=== PATIENT | male | born 1955 | race Caucasian/White ===

== ENCOUNTER 2020-10-20 06:32 | Emergency (ER) | payer MEDICAID ==
[~2020-10-20] VITALS: Ht 190.5 cm; Wt 100.0 kg
[~2020-10-20 06:32] MED LIST: AMOX-117 PO; CLIN-26 PO; FENT1PAT10 TD; FLO0.4C PO; HYDR-3567 PO; OMEP-84 PO; TRAM50TA2 PO
[2020-10-20 06:48] VITALS: BP 123/74
[2020-10-20] MEDS ORDERED: ibuprofen 200mg tablet PO ONE (06:55)
[2020-10-20] MEDS ORDERED: LIDOcaine 1% W/epiNEPHrine 1:200,000 10ml vial IJ ONE (06:55)
[2020-10-20] MEDS ORDERED: LIDOcaine 1% w/epiNEPHrine 1:200,000 30ml vial IJ ONE (07:00)
[2020-10-20] MEDS ORDERED: SULF1TAB49 PO (07:53)
== END 2020-10-20 08:24 | disposition home or self-care (01) ==
LOC: ER 06:33
DX: L03.012 Cellulitis of left finger (principal); G89.29 Other chronic pain; M54.9 Dorsalgia, unspecified; F12.10 Cannabis abuse, uncomplicated; Z56.0 Unemployment, unspecified; Z79.899 Other long term (current) drug therapy
CPT/HCPCS: 10060; 26010; 99283

== ENCOUNTER 2022-09-14 20:06 | Emergency (ER) | payer OTHER, MEDICARE, MEDICAID ==
[~2022-09-14] VITALS: Ht 190.5 cm; Wt 81.8 kg
[2022-09-14 20:40] VITALS: BP 124/81
[2022-09-14] MEDS ORDERED: bacitracin 15gm ointment TP ONE (21:20)
== END 2022-09-14 21:56 | disposition home or self-care (01) ==
LOC: ER 20:08
DX: S60.552A Superficial foreign body of left hand, initial encounter (principal); S60.551A Superficial foreign body of right hand, initial encounter; L30.9 Dermatitis, unspecified; G89.29 Other chronic pain; M54.9 Dorsalgia, unspecified; Z79.899 Other long term (current) drug therapy; Z79.1 Long term (current) use of non-steroidal anti-inflammatories (NSAID); Z79.2 Long term (current) use of antibiotics; X58.XXXA Exposure to other specified factors, initial encounter; Y93.89 Activity, other specified; Y92.89 Other specified places as the place of occurrence of the external cause; Y99.8 Other external cause status
CPT/HCPCS: 99282

== ENCOUNTER 2022-10-18 13:17 | Emergency (ER) | payer OTHER, MEDICARE, MEDICAID ==
[~2022-10-18] VITALS: Ht 190.5 cm; Wt 72.7 kg
[2022-10-18 13:21] VITALS: BP 126/91
--- NOTE | 2022-10-18 13:37 | NUR ---
Patient was seen and assessed by provider.
== END 2022-10-18 13:38 ==
LOC: ER 13:17
DX: Z00.00 Encounter for general adult medical examination without abnormal findings (principal); G89.29 Other chronic pain; M54.50 Low back pain, unspecified; F12.90 Cannabis use, unspecified, uncomplicated; Z56.0 Unemployment, unspecified
CPT/HCPCS: 99283

== ENCOUNTER 2023-03-30 00:10 | Emergency (ER) | payer OTHER, MEDICARE, MEDICAID ==
[~2023-03-30] VITALS: Ht 188 cm; Wt 81.8 kg
[2023-03-30 00:12] VITALS: BP 116/66
== END 2023-03-30 02:31 | disposition left against medical advice (07) ==
LOC: ER 00:11
DX: M79.602 Pain in left arm (principal); Z53.21 Procedure and treatment not carried out due to patient leaving prior to being seen by health care provider
CPT/HCPCS: 99281

== ENCOUNTER 2023-04-01 23:11 | Emergency (ER) | payer OTHER, MEDICARE, MEDICAID ==
[~2023-04-01] VITALS: Ht 188 cm; Wt 79.5 kg
[2023-04-02] MEDS ORDERED: DOXYCYCLINE 100MG CAPSULE PO STA (01:31)
[2023-04-02] MEDS ORDERED: acetaminophen 325mg tablet PO ONE (01:35)
[2023-04-02 01:52] LABS: BASOPHILS % (AUTO) 0.3 % (0-1); EOSINOPHILS # (AUTO) 0.3 X10'3 (0-0.9); EOSINOPHILS % (AUTO) 3.9 % (0-6); HEMATOCRIT 38.2 % (42.0-52.0); HEMOGLOBIN 13.1 g/dl (14.0-17.9); LYMPHOCYTES # (AUTO) 1.8 X10'3 (1.1-4.8); LYMPHOCYTES % (AUTO) 21.2 % (21-51); MEAN CORPUSCULAR HEMOGLOBIN 30.5 PG (27.0-31.0); MEAN CORPUSCULAR HGB CONC 34.3 g/dL (33.0-36.5); MEAN CORPUSCULAR VOLUME 88.9 FL (78-98); MEAN PLATELET VOLUME 6.9 FL (7.4-10.4); MONOCYTES # (AUTO) 0.9 X10'3 (0-0.9); MONOCYTES % (AUTO) 11.1 % (2-12); NEUTROPHILS # (AUTO) 5.3 X10'3 (1.8-7.7); NEUTROPHILS % (AUTO) 63.5 % (42-75); PLATELET COUNT 327 X10'3 (140-440); WHITE BLOOD COUNT 8.4 X10'3 (4.5-11.0)
[2023-04-02 02:09] LABS: ALBUMIN 3.5 G/DL (3.4-5.0); ANION GAP 7 (8-16); BLOOD UREA NITROGEN 26 MG/DL (7-18); BUN/CREATININE RATIO 24.8 (10.0-20.0); CALCIUM 8.7 MG/DL (8.5-10.1); CHLORIDE 104 MMOL/L (99-107); CREATININE 1.05 MG/DL (0.60-1.10); GLUCOSE 86 MG/DL (70-104); POTASSIUM 3.8 MMOL/L (3.5-5.1); SODIUM 139 MMOL/L (135-145); TOTAL CARBON DIOXIDE 28.3 MMOL/L (24-32); eGFR 70 ML/MIN
[2023-04-02] MEDS ORDERED: ondansetron 4mg rapidly disintigrating tab PO ONE (02:25)
[2023-04-02] MEDS ORDERED: DOXY100C77 PO (03:20)
[2023-04-02 03:48] VITALS: BP 128/77
== END 2023-04-02 03:51 | disposition home or self-care (01) ==
LOC: ER 23:12
DX: L98.9 Disorder of the skin and subcutaneous tissue, unspecified (principal); F12.90 Cannabis use, unspecified, uncomplicated; Z56.0 Unemployment, unspecified
CPT/HCPCS: 36415; 73130; 80048; 85025; 99284

== ENCOUNTER 2023-04-02 13:00 | Emergency (ER) | payer OTHER, MEDICARE, MEDICAID ==
[~2023-04-02] VITALS: Ht 188 cm; Wt 84.1 kg
[~2023-04-02 13:00] MED LIST changes: +DOXY100C77 PO
[2023-04-02 13:11] VITALS: BP 101/61
--- NOTE | 2023-04-02 14:08 | NUR ---
PT LWOBS. PT BROUGHT IN PARAPHERNALIA TO ER, SECURITY ASKED PT TO TAKE PARAPHERNALIA TO CAR OR IT WOULD HAVE TO BE DISPOSED OF. PT NEVER RETURNED TO ROOM.
== END 2023-04-02 14:08 | disposition left against medical advice (07) ==
LOC: ER 13:01
DX: L02.512 Cutaneous abscess of left hand (principal); Z53.21 Procedure and treatment not carried out due to patient leaving prior to being seen by health care provider
CPT/HCPCS: 99281

== ENCOUNTER 2023-07-11 01:56 | Emergency (ER) | payer OTHER, MEDICARE ==
[~2023-07-11] VITALS: Ht 190.5 cm; Wt 81.8 kg
[~2023-07-11 01:56] MED LIST changes: -DOXY100C77 PO
[2023-07-11 02:07] VITALS: BP 132/77; PULSE 89; RESP 16; TEMP 98.1; O2SAT 98
[2023-07-11] MEDS ORDERED: SULF1TAB49 PO (02:13)
[2023-07-11] MEDS ORDERED: CEPH-585 PO (02:13)
== END 2023-07-11 02:37 | disposition home or self-care (01) ==
LOC: ER 01:57
DX: L03.116 Cellulitis of left lower limb (principal)
CPT/HCPCS: 99283

== ENCOUNTER 2024-10-19 23:54 | Emergency (ER) | payer OTHER, MEDICARE ==
[~2024-10-19] VITALS: Ht 190.5 cm; Wt 79.5 kg
[2024-10-19 23:56] VITALS: BP 155/88; PULSE 98; RESP 17; TEMP 98.4; O2SAT 99
== END 2024-10-20 02:37 | disposition left against medical advice (07) ==
LOC: ER 23:55
DX: R10.31 Right lower quadrant pain (principal); Z53.21 Procedure and treatment not carried out due to patient leaving prior to being seen by health care provider

== ENCOUNTER 2024-10-20 04:35 | Emergency (ER) | payer OTHER, MEDICARE, MEDICAID | END 2024-10-20 05:06 | disposition left against medical advice (07) | LOC: ER 04:36 | DX: R10.84 Generalized abdominal pain (principal); Z53.21 Procedure and treatment not carried out due to patient leaving prior to being seen by health care provider ==

== ENCOUNTER 2024-11-09 20:25 | Inpatient (IN) | payer OTHER, MEDICARE, MEDICAID ==
[~2024-11-09] VITALS: Ht 190.5 cm; Wt 78.0 kg
[~2024-11-09 20:25] MED LIST changes: -AMOX-117 PO; -CLIN-26 PO; -HYDR-3567 PO; -TRAM50TA2 PO
[2024-11-09] MEDS ORDERED: haloperidol 5mg tablet PO ONE (20:40)
[2024-11-09] MEDS ORDERED: LORazepam 1 MG tablet PO ONE (20:40)
[2024-11-09] MEDS ORDERED: loperamide 2mg capsule PO PRN ×2 (20:45→20:50)
[2024-11-09] MEDS ORDERED: mag hydrox/Alum hydrox/simeth 30ml oral suspension PO PRN ×2 (20:45→20:50)
[2024-11-09] MEDS ORDERED: magnesium hydroxide 30ml (MOM) UD suspension PO PRN ×2 (20:45→20:50)
[2024-11-09] MEDS ORDERED: acetaminophen 325mg tablet PO PRN ×4 (20:45→20:50)
[2024-11-09] MEDS ORDERED: NICOTINE POLACRILEX 2 MG LOZENGE BC PRN (20:50)
[2024-11-09] MEDS: diphenhydrAMINE 25mg capsule PO ONE (21:26)
[2024-11-09] MEDS: traZODone 50mg tablet PO ONE (21:26)
[2024-11-09 22:00] VITALS: RESP 18; O2SAT 96
[2024-11-10 07:00] VITALS: RESP 16; O2SAT 97
[2024-11-10] MEDS: pantoprazole 40mg Tablet.DR PO SCH (07:30)
[2024-11-10] MEDS: tamsulosin 0.4mg capsule PO SCH (07:50)
[2024-11-10] MEDS: nicotine 21mg patch - 24 hr TD SCH (07:50)
[2024-11-10 08:00] VITALS: BP 110/63; PULSE 78; RESP 16; TEMP 98.1; O2SAT 97
[2024-11-10 19:29] VITALS: RESP 18
[2024-11-11 07:00] VITALS: RESP 16; O2SAT 97
[2024-11-11 08:00] VITALS: BP 157/81; PULSE 66; RESP 16; TEMP 98.6; O2SAT 98
[2024-11-11 19:00] VITALS: RESP 20; O2SAT 98
[2024-11-11 19:12] VITALS: BP 101/97; PULSE 89; RESP 20; TEMP 98.2; O2SAT 98
[2024-11-12 07:00] VITALS: RESP 16; O2SAT 98
[2024-11-12 08:00] VITALS: BP 103/69; PULSE 82; RESP 16; TEMP 97.8; O2SAT 98
[2024-11-12 19:00] VITALS: RESP 14; O2SAT 97
[2024-11-12 20:00] VITALS: BP 107/51; PULSE 83; RESP 14; TEMP 98.5; O2SAT 97
[2024-11-13 02:40] VITALS: BP 107/51; PULSE 83; RESP 14; TEMP 98.5; O2SAT 97
[2024-11-13 07:00] VITALS: RESP 12; O2SAT 96
[2024-11-13 08:00] VITALS: BP 105/67; PULSE 65; RESP 12; TEMP 98.4; O2SAT 96
== END 2024-11-13 11:15 | disposition home or self-care (01) | DRG 885 ==
LOC: UNDOADMIN 20:25 → ADULT MH 20:25
PROVIDERS: ADMIT Psychiatry & Neurology Psychiatry; ATTEND Psychiatry & Neurology Psychiatry
PROC: GZHZZZZ Group Psychotherapy (ICD-10-PCS; principal; 2024-11-12)
PROC: GZ51ZZZ Individual Psychotherapy, Behavioral (ICD-10-PCS; 2024-11-12)
DX: F29 Unspecified psychosis not due to a substance or known physiological condition (principal); R45.851 Suicidal ideations; J44.9 Chronic obstructive pulmonary disease, unspecified; G89.4 Chronic pain syndrome; G40.909 Epilepsy, unspecified, not intractable, without status epilepticus; K21.9 Gastro-esophageal reflux disease without esophagitis; F32.A Depression, unspecified; M54.50 Low back pain, unspecified; K40.90 Unilateral inguinal hernia, without obstruction or gangrene, not specified as recurrent; N40.0 Benign prostatic hyperplasia without lower urinary tract symptoms; Z85.828 Personal history of other malignant neoplasm of skin; Z85.528 Personal history of other malignant neoplasm of kidney; Z72.0 Tobacco use
CPT/HCPCS: 87081; Q0163

== ENCOUNTER 2024-12-07 02:14 | Emergency (ER) | payer OTHER, MEDICARE, MEDICAID ==
[~2024-12-07 02:14] MED LIST changes: -FENT1PAT10 TD
== END 2024-12-07 02:27 | disposition left against medical advice (07) ==
LOC: ER 02:14
DX: M25.569 Pain in unspecified knee (principal); Z53.21 Procedure and treatment not carried out due to patient leaving prior to being seen by health care provider